=== PATIENT | female | born 1965 | race Caucasian/White ===

== ENCOUNTER → 2019-05-24 10:52 | Outpatient (CLI) | payer BC, MEDICAID, SELFPAY ==
[2019-05-17 11:39] VITALS: BMI 35.7
--- NOTE | 2019-05-25 08:05 | PFT ---
INTRODUCTION: The patient is a 53-year-old female that presents for pulmonary function studies secondary to a diagnosis of asthma. Respiratory therapy reports good patient effort. Bronchodilators were used during testing. INTERPRETATION: Forced expiration spirometry demonstrates no evidence of a large airways obstructive ventilatory defect. There was no significant response to aerosolized bronchodilators. Spirograms are of good quality and plateau normally. Body plethysmography was performed and reveals lung volumes to be within normal limits. Diffusing capacity by single breath CO is also within normal limits at 91% of predicted. IMPRESSION: Grossly normal pulmonary function studies.
== END ==
PROVIDERS: PCP Family Medicine; Referring Provider Internal Medicine Critical Care Medicine; Visit Provider Internal Medicine Critical Care Medicine
DX: J45.50 Severe persistent asthma, uncomplicated (principal); R06.00 Dyspnea, unspecified
CPT/HCPCS: 94060; 94726; 94729

== ENCOUNTER → 2019-05-25 13:49 | Outpatient (CLI) | payer BC, MEDICAID, SELFPAY ==
[2019-05-17 11:39] VITALS: BMI 35.7
--- NOTE | 2019-05-25 13:51 | ECHOD_ITS ---
Reason For Study: Dyspnea/SOB Procedure This was a 2D Doppler, Color Flow transthoracic echocardiogram. Exam performed in department. Left Ventricle Normal size and thickness. The estimated ejection fraction is 65 %. Stage 1 diastolic dysfunction. No regional wall motion abnormalities noted. Right Ventricle Normal size and thickness. Normal systolic function. Atria The left atrium is mildly enlarged. Normal right atrium. Hypermobile atrial septum. Weakly positive bubble study with R to L crossover. Mitral Valve The mitral valve is structurally normal. No prolapse or stenosis seen. Trivial mitral valve insufficiency. Tricuspid Valve Normal tricuspid valve. Trivial tricuspid valve insufficiency. Right ventricular systolic pressure estimated to be 33 mmHg. Aortic Valve Trisinus/trileaflet aortic valve. Trivial aortic valve insufficiency. Pulmonic Valve Normal pulmonic valve. Great Vessels Normal aortic root. Normal arch. Normal inferior vena cava. Inferior vena cava collapse with sniff. Pericardium/Pleural No pericardial effusion. Medication Performed a rapid injection of agitated mix of 9 cc saline and 1cc air to assess for atrial septal defect. MMode/2D Measurements & Calculations LVIDd: 4.4 cm IVSd: 1.1 cm Ao root diam: 3.3 cm LVIDs: 3.1 cm LVPWd: 1.0 cm RVDd: 3.1 cm FS: 30.2 % LAV(MOD-bp): 71.9 ml LVAd ap4: 31.9 cm2 SV(MOD-sp4): 64.4 ml LAV(MOD-bp) Indexed: 32.9 ml/m2 EDV(MOD-sp4): 97.5 ml LAV(MOD-sp2): 60.5 ml EDV(sp4-el): 102.3 ml LAV(MOD-sp4): 75.7 ml LVAs ap4: 16.7 cm2 ESV(MOD-sp4): 33.2 ml ESV(sp4-el): 34.4 ml EF(MOD-sp4): 66.0 % EF(sp4-el): 66.3 % SV(sp4-el): 67.9 ml LA A4 area: 24.1 cm2 LA dimension(2D): 4.9 cm RA A4 area: 16.0 cm2 Doppler Measurements & Calculations MV E max uday: 63.8 cm/sec Lat Peak E' Uday: 11.0 cm/sec Med Peak E' Uday: 7.6 cm/sec MV A max uday: 73.6 cm/sec E/E' lat: 5.8 E/E' med: 8.4 MV E/A: 0.87 Ao V2 max: 163.9 cm/sec LV V1 max: 138.9 cm/sec PA V2 max: 86.1 cm/sec Ao max P.7 mmHg LV V1 max P.7 mmHg Ao V2 mean: 121.4 cm/sec Ao mean P.3 mmHg Ao V2 VTI: 35.8 cm TR max uday: 262.5 cm/sec TR max P.6 mmHg Interpretation Summary The estimated ejection fraction is 65 %. Stage 1 diastolic dysfunction. The left atrium is mildly enlarged. Hypermobile atrial septum. Weakly positive bubble study with R to L crossover. Trivial mitral valve insufficiency. Trivial tricuspid valve insufficiency. Right ventricular systolic pressure estimated to be 33 mmHg. Trivial aortic valve insufficiency. There is no comparison study available. Ordering Physician: Mario Meneses Referring Physician: Victorino Cueto Performed By: Sushila Todd, DAVID, RVT
== END ==
PROVIDERS: PCP Family Medicine; Referring Provider Internal Medicine Critical Care Medicine; Visit Provider Internal Medicine Critical Care Medicine
DX: J45.50 Severe persistent asthma, uncomplicated (principal); R06.00 Dyspnea, unspecified
CPT/HCPCS: 93306; A4216

== ENCOUNTER → 2019-05-31 12:37 | Outpatient (CLI) | payer MEDICARE, BC, MEDICAID, SELFPAY ==
[2019-05-17 11:39] VITALS: BMI 35.7
[2019-05-31 13:34] VITALS: PULSE 100; PULSE 104; PULSE 106; PULSE 107; PULSE 109; PULSE 85; O2SAT 87; O2SAT 89; O2SAT 92; O2SAT 93; O2SAT 94; O2SAT 95; O2SAT 96
--- NOTE | 2019-05-31 13:38 | CPS ---
Patient states she wears oxygen with her CPAP machine at home. Patient DME is [facility] in [place]. Patient was seen at [facility] within 30 days. Walk sent to [facility] to initiate 2LNC script for [facility] and patient requested POC.
--- NOTE | 2019-06-01 17:30 | PCM.PSN.6M ---
PSN 6 Minute Walk Test - 6 Minute Walk Test 6 Minute Walk Test: 6 Minute Walk Test PSN:6-Minute Walk Test Start: 05/31/19 13:34 Freq: Status: Active Protocol: RESP.6MINW Document 05/31/19 13:34 SMB (Rec: 05/31/19 13:42 SMB [id number]) 6 Minute Walk Test Date Performed 05/31/19 Time Performed 12:45 Height 5 ft 8 in Weight: 107.048 kg Weight in Pounds 236.[address]: Mario Meneses Assistive device used: None Pre-test Oxygen Delivery Method Room Air Pulse Ox (%) 94 Pulse Rate (60-100 beats/min) 85 Dyspnea Pablo Scale (0-10) 0 Exertion Pablo Scale (6-20) 11 1st minute Oxygen Delivery Method Room Air Pulse Ox (%) 89 Pulse Rate (60-100 beats/min) 104 H 2nd minute Oxygen Flow Rate (L/min) (L/min) 2 Oxygen Delivery Method Nasal Cannula Pulse Ox (%) 87 Pulse Rate (60-100 beats/min) 109 H 3rd minute Oxygen Flow Rate (L/min) (L/min) 2 Oxygen Delivery Method Nasal Cannula Pulse Ox (%) 93 Pulse Rate (60-100 beats/min) 100 4th minute Oxygen Flow Rate (L/min) (L/min) 2 Oxygen Delivery Method Nasal Cannula Pulse Ox (%) 92 Pulse Rate (60-100 beats/min) 106 H 5th minute Oxygen Flow Rate (L/min) (L/min) 2 Oxygen Delivery Method Nasal Cannula Pulse Ox (%) 95 Pulse Rate (60-100 beats/min) 109 H 6th minute Oxygen Flow Rate (L/min) (L/min) 2 Oxygen Delivery Method Nasal Cannula Pulse Ox (%) 93 Pulse Rate (60-100 beats/min) 107 H Post-test Oxygen Flow Rate (L/min) (L/min) 2 Oxygen Delivery Method Nasal Cannula Pulse Ox (%) 96 Pulse Rate (60-100 beats/min) 85 Dyspnea Pablo Scale (0-10) 5 Exertion Pablo Scale (6-20) 14 Full Laps Walked 21 Partial Lap, Number of Tiles Walked 17 Total Distance Walked (ft) 1256 05/31/19 13:38 Cardiopulmonary Services by Ama Ellis Patient states she wears oxygen with her CPAP machine at home. Patient DME is [facility] in [place]. Patient was seen at [facility] within 30 days. Walk sent to [facility] to initiate 2LNC script for [facility] and patient requested POC. Initialized on 05/31/19 13:38 - END OF NOTE - Interpretation Interpretation: The patient was noted to be 94% on room air, but desaturated to 87% in the second minute. Patient was placed on 2 L nasal cannula with improvement in saturations was able to complete ambulation. In total, the patient was able to travel 1256 feet over the course of 6 minutes with no assistive devices or breaks. - Recommendations Recommendations: The patient requires no supplemental oxygen at rest, but should be using 2 L nasal cannula with all exertion.
== END ==
PROVIDERS: PCP Family Medicine; Referring Provider Internal Medicine Critical Care Medicine; Visit Provider Internal Medicine Critical Care Medicine
DX: J45.50 Severe persistent asthma, uncomplicated (principal); R06.00 Dyspnea, unspecified
CPT/HCPCS: 94618

== ENCOUNTER → 2020-06-15 10:49 | Outpatient (CLI) | payer MEDICARE, MEDICAID, SELFPAY ==
[2020-05-24 08:37] VITALS: BMI 32.5
--- NOTE | 2020-06-15 14:00 | PFTCOMP ---
COMPLETE PULMONARY FUNCTION TEST INTERPRETATION Brief HPI: Patient is a 54 year old female, currently under the care of myself, who presents to [facility] for complete pulmonary function tests secondary to diagnosis of asthma. Respiratory therapist reports good effort and reproducible results. Interpretation: Forced expiration spirometry shows no large airways obstructive ventilatory defect with an FEV1 of 106% predicted. There is no significant bronchodilator response by strict ATS criteria. Spirograms are of good quality and plateau normally. The respiratory flow volume loop shows a normal pattern. Lung volumes by body plethysmography show a normal total lung capacity at 5.42 L, 94% predicted. All other lung volumes are within normal limits. Diffusion capacity by carbon monoxide is normal at 89% predicted. The airway resistance is normal. No previous pulmonary function tests were available for review. Impression: These pulmonary function tests are within normal limits.
== END ==
PROVIDERS: PCP Family Medicine; Referring Provider Internal Medicine Critical Care Medicine; Visit Provider Internal Medicine Critical Care Medicine
DX: J45.909 Unspecified asthma, uncomplicated (principal)
CPT/HCPCS: 94060; 94726; 94729

== ENCOUNTER → 2020-06-19 12:25 | Outpatient (CLI) | payer MEDICARE, MEDICAID, SELFPAY ==
[2020-05-24 08:37] VITALS: BMI 32.5
[2020-06-19 13:01] VITALS: PULSE 69; PULSE 72; PULSE 73; PULSE 76; PULSE 78; PULSE 84; PULSE 86; PULSE 93; O2SAT 88; O2SAT 90; O2SAT 92; O2SAT 93; O2SAT 95; O2SAT 98; O2SAT 99
--- NOTE | 2020-06-19 13:05 | CPS ---
PATIENT ON ROOM AIR FOR BEGINNING OF TEST. AT 5 MIN, SHE FELT DIZZY AND HAD INCREASE IN WOB, SAT DOWN AND APPLIED HER OWN OXYGEN AT 2LPM, SPO2 WAS 88% RA. REMAINDER OF TEST FINISHED ON 2LPM DEMAND-FLOW OXYGEN.
--- NOTE | 2020-06-20 13:40 | PCM.PSN.6M ---
PSN 6 Minute Walk Test - 6 Minute Walk Test 6 Minute Walk Test: 6 Minute Walk Test PSN:6-Minute Walk Test Start: 06/19/20 13:01 Freq: Status: Active Protocol: RESP.6MINW Document 06/19/20 13:01 [facility] (Rec: 06/19/20 13:08 [facility] [id number]) 6 Minute Walk Test Date Performed 06/19/20 Time Performed 12:30 Height 5 ft 8 in Weight: 213 lb Weight in Pounds 213.[address]: Mario Meneses Assistive device used: None Pre-test Oxygen Delivery Method Room Air Pulse Ox (%) 98 Pulse Rate (60-100 beats/min) 69 Dyspnea Pablo Scale (0-10) 1 1st minute Oxygen Delivery Method Room Air Pulse Ox (%) 95 Pulse Rate (60-100 beats/min) 72 Dyspnea Pablo Scale (0-10) 1 Number of Rests Taken 0 2nd minute Oxygen Delivery Method Room Air Pulse Ox (%) 93 Pulse Rate (60-100 beats/min) 76 Dyspnea Pablo Scale (0-10) 1 Number of Rests Taken 0 3rd minute Oxygen Delivery Method Room Air Pulse Ox (%) 92 Pulse Rate (60-100 beats/min) 84 Dyspnea Pablo Scale (0-10) 2 Number of Rests Taken 0 4th minute Oxygen Delivery Method Room Air Pulse Ox (%) 90 Pulse Rate (60-100 beats/min) 86 Dyspnea Pablo Scale (0-10) 2 Number of Rests Taken 0 5th minute Oxygen Delivery Method Room Air Pulse Ox (%) 88 Pulse Rate (60-100 beats/min) 93 Dyspnea Pablo Scale (0-10) 3 Number of Rests Taken 1 Reported Symptoms Increased Work of Breathing, Dizziness 6th minute Oxygen Flow Rate (L/min) (L/min) 2 Oxygen Delivery Method Nasal Cannula Pulse Ox (%) 98 Pulse Rate (60-100 beats/min) 78 Dyspnea Pablo Scale (0-10) 3 Number of Rests Taken 0 Reported Symptoms Increased Work of Breathing Post-test Oxygen Flow Rate (L/min) (L/min) 2 Oxygen Delivery Method Nasal Cannula Pulse Ox (%) 99 Pulse Rate (60-100 beats/min) 73 Dyspnea Pablo Scale (0-10) 1 Full Laps Walked 16 Partial Lap, Number of Tiles Walked 13 Total Distance Walked (ft) 957 06/19/20 13:05 Cardiopulmonary Services by Guera Goddard PATIENT ON ROOM AIR FOR BEGINNING OF TEST. AT 5 MIN, SHE FELT DIZZY AND HAD INCREASE IN WOB, SAT DOWN AND APPLIED HER OWN OXYGEN AT 2LPM, SPO2 WAS 88% RA. REMAINDER OF TEST FINISHED ON 2LPM DEMAND-FLOW OXYGEN. Initialized on 06/19/20 13:05 - END OF NOTE - Interpretation Interpretation: The patient ambulated 957 feet over the course of 6 minutes beginning on room air without assistive devices or breaks. Pretesting oxygen saturation was noted to be 98% on room air. With ambulation, the abelardo oxygen saturation was 88%, requiring the initiation of 2 L/min of supplemental oxygen. - Recommendations Recommendations: 2 L/min of supplemental oxygen should be utilized with exertion.
== END ==
PROVIDERS: PCP Family Medicine; Visit Provider Internal Medicine Critical Care Medicine
DX: J45.909 Unspecified asthma, uncomplicated (principal)
CPT/HCPCS: 94618

== ENCOUNTER → 2024-04-04 | Outpatient (CLI) | payer MEDICARE, MEDICAID, SELFPAY ==
[2024-04-04 12:30] VITALS: PULSE 103; PULSE 107; PULSE 108; PULSE 112; PULSE 115; PULSE 90; PULSE 92; O2SAT 2; O2SAT 88; O2SAT 90; O2SAT 91; O2SAT 92; O2SAT 94
--- NOTE | 2024-04-04 13:07 | CPS ---
Pt started walk on room air. At 2 minutes into walk pt required oxygen. Pt placed on 1 lpm. Pt was increased to 2 lpm at 4 minutes into walk. Pt finished walk on 2 lpm.
--- NOTE | 2024-04-06 13:21 | WT_ITS ---
PSN 6 Minute Walk Test 6 Minute Walk Test 6 Minute Walk Test: 6 Minute Walk Test PSN:6-Minute Walk Test Start: 04/04/24 12:59 Freq: Status: Active Protocol: RESP.6MINW Document 04/04/24 12:30 AE (Rec: 04/04/24 13:[address] [facility] [id number]) 6 Minute Walk Test Date Performed 04/04/24 Time Performed 12:30 Height 5 ft 7 in Weight: 220 lb Weight in Pounds 220.[address]: Zuri Assistive device None used: Pre-test Oxygen Delivery Room Air Method Pulse Ox (%) 94 Pulse Rate (60-100 92 beats/min) Dyspnea Pablo Scale ( 0 0-10) Exertion Pablo Scale 6 (6-20) 1st minute Oxygen Delivery Room Air Method Pulse Ox (%) 90 Pulse Rate (60-100 108 H beats/min) 2nd minute Oxygen Delivery Room Air Method Pulse Ox (%) 88 Pulse Rate (60-100 115 H beats/min) Dyspnea Pablo Scale ( 0 0-10) 3rd minute Oxygen Flow Rate (L/ 1 min) (L/min) Oxygen Delivery Nasal Cannula Method Pulse Ox (%) 90 Pulse Rate (60-100 107 H beats/min) 4th minute Oxygen Flow Rate (L/ 1 min) (L/min) Oxygen Delivery Nasal Cannula Method Pulse Ox (%) 88 Pulse Rate (60-100 112 H beats/min) Dyspnea Pablo Scale ( 0.5 0-10) 5th minute Oxygen Flow Rate (L/ 2 min) (L/min) Oxygen Delivery Nasal Cannula Method Pulse Ox (%) 91 Pulse Rate (60-100 115 H beats/min) Dyspnea Pablo Scale ( 1 0-10) 6th minute Oxygen Flow Rate (L/ 2 min) (L/min) Oxygen Delivery Nasal Cannula Method Pulse Ox (%) 2 Pulse Rate (60-100 90 beats/min) Dyspnea Pablo Scale ( 111 0-10) Exertion Pablo Scale 1 (6-20) Number of Rests 11 Taken Post-test Oxygen Flow Rate (L/ 2 min) (L/min) Oxygen Delivery Nasal Cannula Method Pulse Ox (%) 92 Pulse Rate (60-100 103 H beats/min) Full Laps Walked 11 Partial Lap, Number 14 of Tiles Walked Total Distance 663 Walked (ft) Interpretation Interpretation: The patient ambulated 663 feet over the course of 6 minutes beginning on room air without assistive devices. Pretesting oxygen saturation was noted to be 94% on room air. With ambulation, the patient desaturated on several occasions, requiring the initiation and subsequent escalation of supplemental oxygen to 2 L/min to maintain appropriate saturations. Recommendations Recommendations: 2 L/min of supplemental oxygen should be utilized with exertion.
== END | disposition home or self-care (01) ==
LOC: PSN 12:27
PROVIDERS: PCP Family Medicine; Referring Provider Nurse Practitioner Family; Visit Provider Nurse Practitioner Family
DX: J96.11 Chronic respiratory failure with hypoxia (principal)
CPT/HCPCS: 94618

== ENCOUNTER → 2024-04-05 | Outpatient (CLI) | payer MEDICARE, MEDICAID, SELFPAY ==
--- NOTE | 2024-04-05 10:58 | ECHOD_ITS ---
Reason For Study: SOB Procedure This was a 2D Doppler, Color Flow transthoracic echocardiogram. Exam performed in department. Left Ventricle Normal LV size. Mild concentric left ventricular hypertrophy. The left ventricular ejection fraction is 60 %. Stage 1 diastolic dysfunction. No regional wall motion abnormalities noted. Right Ventricle Normal RV size. Normal systolic function. Atria The left atrium is mildly enlarged. Normal right atrium. Mitral Valve Normal mitral valve. Tricuspid Valve Normal tricuspid valve. Mild tricuspid valve insufficiency. Aortic Valve Trisinus/trileaflet aortic valve. Pulmonic Valve Normal pulmonic valve. Great Vessels Normal aortic root. The pulmonary artery is normal size. Normal inferior vena cava. Pericardium/Pleural No pericardial effusion. MMode/2D Measurements & Calculations LVIDd: 4.2 cm IVSd: 1.3 cm Ao root diam: 3.4 cm LVIDs: 2.6 cm LVPWd: 1.2 cm RVDd: 3.6 cm FS: 37.8 % _ LAV(MOD-bp): 76.3 ml LVAd ap4: 37.3 cm2 SV(MOD- sp4): 73.0 ml LAV(MOD-bp) Indexed: 35.0 ml/m2 LVLd ap4: 9.1 cm SI(MOD- sp4): 33.5 ml/m2 LAV(MOD-sp2): 75.1 ml EDV(MOD-sp4): 120.8 ml LAV(MOD-sp4): 75.8 ml EDV(sp4-el): 129.2 ml LVAs ap4: 22.0 cm2 LVLs ap4: 8.2 cm ESV(MOD-sp4): 47.8 ml ESV(sp4-el): 50.2 ml EF(MOD-sp4): 60.4 % EF(sp4-el): 61.2 % _ SV(sp4-el): 79.0 ml LA A4 area: 24.1 cm2 LA dimension(2D): 3.7 cm _ RA A4 area: 16.3 cm2 TAPSE: 2.2 cm Time Measurements MV dec time: 0.25 sec Doppler Measurements & Calculations MV E max uday: 55.1 cm/sec Lat Peak E' Uday: 12.1 cm/sec Med Peak E' Uday: 6.7 cm/sec MV A max uday: 77.0 cm/sec E/E' lat: 4.5 E/E' med: 8.2 MV E/A: 0.72 _ MV V2 max: 82.3 cm/sec MV P1/2t max uday: 71.4 cm/sec Ao V2 max: 158.3 cm/sec MV max P.7 mmHg MV P1/2t: 85.7 msec Ao max P.0 mmHg MV V2 mean: 43.5 cm/sec Ao V2 mean: 111.7 cm/sec MV mean P.92 mmHg MV dec slope: 244.2 cm/sec2 Ao mean P.6 mmHg MV V2 VTI: 22.4 cm MVA(P1/2t): 2.6 cm2 Ao V2 VTI: 35.8 cm AV (velocity ratio): 0.94 _ LV V1 max: 143.4 cm/sec PA V2 max: 92.2 cm/sec TR max uday: 219.1 cm/sec LV V1 max P.2 mmHg PA V2 mean: 66.7 cm/sec TR max P.2 mmHg LV V1 mean P.1 mmHg LV V1 mean: 107.9 cm/sec LV V1 VTI: 33.6 cm ECHO/Echo Complete Interpretation Summary The left ventricular ejection fraction is 60 %. Normal LV size. Mild concentric left ventricular hypertrophy. Stage 1 diastolic dysfunction. The left atrium is mildly enlarged. Structurally normal valves. Ordering Physician: Shanique Fitzpatrick Referring Physician: Shanique Fitzpatrick Performed By: Alex Gtz RCS
== END | disposition home or self-care (01) ==
LOC: CVS 10:58
PROVIDERS: PCP Family Medicine; Referring Provider Nurse Practitioner Family; Visit Provider Nurse Practitioner Family
DX: R06.02 Shortness of breath (principal)
CPT/HCPCS: 93306

== ENCOUNTER → 2024-04-12 | Outpatient (CLI) | payer MEDICARE, MEDICAID, SELFPAY | END | disposition home or self-care (01) | LOC: PSN 09:53 | PROVIDERS: PCP Family Medicine; Referring Provider Nurse Practitioner Family; Visit Provider Nurse Practitioner Family | DX: R05.9 Cough, unspecified (principal) | CPT/HCPCS: 94060; 94726; 94729 ==

== ENCOUNTER → 2024-06-15 | Outpatient (CLI) | payer MEDICARE, MEDICAID, SELFPAY ==
[2024-06-15 13:19] LABS: Pro- Brain NATRIURETIC PEPTIDE 54 pg/mL (<=900)
== END | disposition home or self-care (01) ==
LOC: LAB 11:18
PROVIDERS: PCP Family Medicine; Referring Provider Internal Medicine Cardiovascular Disease; Visit Provider Internal Medicine Cardiovascular Disease
DX: I50.9 Heart failure, unspecified (principal)
CPT/HCPCS: 36415; 83880

== ENCOUNTER → 2024-08-17 | Outpatient (CLI) | payer MEDICARE, MEDICAID, SELFPAY ==
--- NOTE | 2024-08-17 13:05 | CT_ITS ---
PROCEDURE: LIMITED CHEST CT CARDIAC ONLY 08/17/2024 REASON FOR EXAM: CHEST PAIN TECHNIQUE: LIMITED CHEST CT CARDIAC ONLY One or more dose reduction techniques were used (e.g., Automated exposure control, adjustment of the mA and/or kV according to patient size, use of iterative reconstruction technique). Intravenous contrast was administered. 80 mL of Isovue 370 was injected. RADIATION DOSE SUMMARY: CTDlvol: 57.2 mGy DLP: 1964.53 mGycm COMPARISON: None FINDINGS: Atherosclerosis of the aortic arch. Minimal coronary artery calcification. The lungs are clear. CT/Limited Chest CT Cardiac Only IMPRESSION: Minimal coronary artery calcification. Reading Location: [place] [address]
[2024-08-17 13:20] VITALS: BP 115/48; PULSE 63; RESP 18; O2SAT 91; BMI 37.5
[2024-08-17] MEDS: 0.9% Saline Lock 10 ML Syringe IV (13:34)
[2024-08-17 13:51] VITALS: BP 131/50; PULSE 71
[2024-08-17] MEDS: Nitroglycerin SL (ED/IMG/CATH) 0.4 MG TABLET SL (13:51)
[2024-08-17 14:03] VITALS: BP 131/50; PULSE 71; RESP 18
--- NOTE | 2024-08-18 07:34 | CCTA.WCONT ---
CCTA w/Cont Coronary Arteries Date of Study:: 08/17/24 chest pain Coronary Calcium Scoring: High-resolution Computed Tomographic imaging of the chest was performed on [08/17/24 ], with particular attention paid to the coronary arteries. Intravenous contrast agent was administered per protocol and images reconstructed and displayed. LEFT MAIN CORONARY ARTERY: Normal [] LEFT ANTERIOR DESCENDING CORONARY ARTERY: Arises from the left main coronary artery with mild diffuse luminal irregularities but no high-grade stenosis present. [] LEFT CIRCUMFLEX CORONARY ARTERY: Nondominant vessel with mild luminal irregularities and no evidence of high-grade stenosis. [] RIGHT CORONARY ARTERY: Dominant vessel arising from the right coronary cusp with no evidence of high-grade stenosis present. [] THORACIC AORTA: [] PULMONARY ARTERY: [] LEFT ATRIUM/APPENDAGE: [] MITRAL VALVE: [] AORTIC VALVE: [] LEFT VENTRICLE: [] CORONARY CALCIUM SCORE: Not done [] Calcium Scoring Interpretation: Different methods to categorize the overall amount of coronary plaque. Overall amount CAC SIS Visual of coronary plaque P1 Mild -100 <2 1-2 vessels with mild amount of plaque P2 Moderate 101-300 3-4 1-2 vessels with moderate amount, 3 vessels with mild amount of plaque P3 Severe 301-999 5-7 3 vessels with moderate amount, 1 vessel with severe amount of plaque P4 Extensive >1000 >8 2-3 vessels with severe amount of plaque Conclusion: Mild atherosclerotic plaquing only present.
== END | disposition home or self-care (01) ==
LOC: CT 12:51
PROVIDERS: PCP Family Medicine; Referring Provider Internal Medicine Cardiovascular Disease; Visit Provider Internal Medicine Cardiovascular Disease
DX: R07.9 Chest pain, unspecified (principal); E78.5 Hyperlipidemia, unspecified
CPT/HCPCS: 75574; 76380; Q9967